=== PATIENT | female | born 1975 | race Two or more races ===

== ENCOUNTER 2020-08-09 10:48 | Day surgery (SDC) | payer OTHER | END 2020-08-09 23:45 | disposition home or self-care (01) | LOC: CIR.AMB 10:48 | PROVIDERS: ATTEND Obstetrics & Gynecology | DX: T83.89XA Other specified complication of genitourinary prosthetic devices, implants and grafts, initial encounter (principal); Z20.822 Contact with and (suspected) exposure to COVID-19 ==